=== PATIENT | male | born 1960 | race African-American/Black ===

== ENCOUNTER 2019-03-27 18:30 | Emergency (ER) | payer OTHER ==
[~2019-03-27] VITALS: Ht 190.5 cm; Wt 72.7 kg
[~2019-03-27 18:30] MED LIST: GABA-533 PO; METFORMIN
[2019-03-27] MEDS ORDERED: METF-445 PO (18:48)
[2019-03-27 18:54] LABS: GLUCOSE,POINT OF CARE 206 MG/DL (70-110)
[2019-03-27 19:18] LABS: BASOPHILS % (AUTO) 0.3 % (0.0-2.0); EOSINOPHILS % (AUTO) 0.2 % (1.0-6.0); HEMATOCRIT 41.7 % (41-53); HEMOGLOBIN 14.2 g/dL (13.5-17.5); LYMPHOCYTES % (AUTO) 13.4 % (22.0-44.0); MEAN CORPUSCULAR VOLUME 91 fL (80-100); MONOCYTES # (AUTO) 0.3 K/uL (0.1-1.0); MONOCYTES % (AUTO) 4.5 % (2.0-9.0); NEUTROPHILS # (AUTO) 6.1 K/uL (1.8-7.7); NEUTROPHILS % (AUTO) 81.6 % (40.0-70.0); PLATELET COUNT (AUTO) 228 K/uL (150-450); RED BLOOD CELL COUNT(AUTO) 4.58 MIL/uL (4.50-5.90); RED CELL DISTRIBUTION WIDTH 14.8 % (11.5-14.5)
[2019-03-27 19:21] LABS: APPEARANCE,URINE CLEAR (CLEAR); BILIRUBIN,URINE NEGATIVE (NEGATIVE); GLUCOSE, URINE (UA) NEGATIVE (NEGATIVE); KETONES,URINE 40 mg/dL (NEGATIVE); LEUKOCYTE ESTERASE ,URINE NEGATIVE (NEGATIVE); NITRATE,URINE NEGATIVE (NEGATIVE); OCCULT BLOOD,URINE SMALL (NEGATIVE); PH,URINE 5.5 (5.0-8.0); PROTEIN,URINE NEGATIVE (NEGATIVE); UROBILINOGEN,URINE 0.2 mg/dL (<=1.0)
[2019-03-27 19:24] LABS: BACTERIA,URINE None Seen /HPF (None Seen); SQUAMOUS EPITHELIAL CELL,UR Rare /LPF (None Seen); WBC,URINE 0-2 /HPF (0-5)
[2019-03-27 19:29] LABS: ANION GAP 9 mmol/L (8-16); CALCIUM, TOTAL 8.6 mg/dL (8.8-10.5); CARBON DIOXIDE 29 mmol/L (22-29); CHLORIDE 100 mmol/L (98-107); CREATININE 0.93 mg/dL (0.60-1.30); GLOMERULAR FILTR. RATE CALC > 60 mL/min (>60); GLUCOSE,RANDOM 237 mg/dL (70-110); POTASSIUM 3.3 mmol/L (3.5-5.1); SODIUM SERUM 138 mmol/L (136-145); UREA NITROGEN, BLOOD 15 mg/dL (7-18)
[2019-03-27] MEDS: SODIUM CHLORIDE 0.9% 1,000 ML IV ONE (19:33)
[2019-03-27] MEDS: ONDANSETRON HCL 4 MG/2 ML VIAL IVP ONE (19:34)
[2019-03-27 19:36] LABS: ALANINE AMINOTRANSFERASE 19 U/L (12-78); ALBUMIN 3.6 g/dL (3.4-5.0); ALKALINE PHOSPHATASE 97 U/L (46-116); ASPARTATE AMINOTRANSFERASE 21 U/L (15-37); BILIRUBIN,TOTAL 0.4 mg/dL (0.1-1.0); LIPASE 134 U/L (73-393); TOTAL PROTEIN, SERUM 7.2 g/dL (6.4-8.2)
[2019-03-27 19:42] LABS: PLATELET MORPHOLOGY COMMENT NORMAL
[2019-03-27] MEDS ORDERED: LORazepam 2 MG/ML VIAL ONE ×2 (19:44→19:55)
[2019-03-27] MEDS: LORazepam 2 MG/ML VIAL IM ONE ×2 (19:46→19:56)
[2019-03-27] MEDS ORDERED: HALOPERIDOL LACTATE 5 MG/ML VIAL ONE (19:55)
[2019-03-27] MEDS: HALOPERIDOL LACTATE 5 MG/ML VIAL IM ONE (19:56)
[2019-03-27 20:16] LABS: GLUCOSE,POINT OF CARE 316 MG/DL (70-110)
[2019-03-27 22:48] VITALS: BP 96/62
== END 2019-03-27 23:07 | disposition home or self-care (01) ==
LOC: EMS 18:34
DX: R51 Headache (principal); R56.9 Unspecified convulsions; R11.2 Nausea with vomiting, unspecified; R10.9 Unspecified abdominal pain; E11.9 Type 2 diabetes mellitus without complications; F10.20 Alcohol dependence, uncomplicated; F17.210 Nicotine dependence, cigarettes, uncomplicated; Z79.899 Other long term (current) drug therapy; Z79.84 Long term (current) use of oral hypoglycemic drugs
CPT/HCPCS: 70450; 93005; 96361; 96372; 96374; J1630; J2060; J2405; J7030

== ENCOUNTER 2021-10-14 15:53 | Emergency (ER) | payer OTHER ==
[~2021-10-14] VITALS: Ht 188 cm; Wt 77.3 kg
[~2021-10-14 15:53] MED LIST changes: +GABA-1201 PO; -GABA-533 PO; +METF-445 PO; -METFORMIN
[2021-10-14] MEDS ORDERED: ACETAMINOPHEN 500 MG TABLET PO ONE (16:15)
[2021-10-14] MEDS ORDERED: KETOROLAC TROMETHAMINE 30 MG/ML VIAL IM ONE (16:15)
[2021-10-14] MEDS ORDERED: PERTUSS(ACELL),DIPH,TET VAC/PF 0.5 ML SYRINGE IM. ONE (16:15)
[2021-10-14] MEDS ORDERED: AMOX TR/POT CLAV 875 MG/125 MG TABLET PO ONE (16:30)
[2021-10-14] MEDS ORDERED: AMOX1TAB16 PO (16:58)
[2021-10-14 17:40] VITALS: BP 120/76
== END 2021-10-14 18:05 | disposition home or self-care (01) ==
LOC: EMS 15:56
DX: S52.502A Unspecified fracture of the lower end of left radius, initial encounter for closed fracture (principal); S52.612A Displaced fracture of left ulna styloid process, initial encounter for closed fracture; E11.9 Type 2 diabetes mellitus without complications; F17.290 Nicotine dependence, other tobacco product, uncomplicated; Z79.899 Other long term (current) drug therapy; Y04.0XXA Assault by unarmed brawl or fight, initial encounter; Y93.89 Activity, other specified; Y92.89 Other specified places as the place of occurrence of the external cause; Y99.8 Other external cause status
CPT/HCPCS: 99284; 73090; 73110; 73130; 90715; 90471; 29125; 96372; J1885